=== PATIENT | female | born 1980 | race Hispanic/Latino ===

== ENCOUNTER 2024-10-31 13:08 | Outpatient (CLI) | payer OTHER | END 2024-10-31 13:09 | disposition home or self-care (01) | LOC: CSHDTY/OP 13:08 | PROVIDERS: ATTEND Nurse Practitioner Family | DX: E11.9 Type 2 diabetes mellitus without complications (principal) | CPT/HCPCS: 97802 ==

== ENCOUNTER 2025-08-06 09:41 | Outpatient (CLI) | payer OTHER | END 2025-08-06 09:42 | disposition home or self-care (01) | LOC: CSHSLEEP 09:41 | PROVIDERS: ATTEND Nurse Practitioner Family | DX: G47.33 Obstructive sleep apnea (adult) (pediatric) (principal); R53.83 Other fatigue; E66.9 Obesity, unspecified; R06.83 Snoring; I10 Essential (primary) hypertension; Z68.37 Body mass index [BMI] 37.0-37.9, adult | CPT/HCPCS: 95800 ==